=== PATIENT | male | born 1940 | race Caucasian/White ===

== ENCOUNTER 2019-05-21 10:32 | Day surgery (SDC) | payer BC, MEDICARE ==
[~2019-05-21] VITALS: Ht 160 cm; Wt 61.2 kg
[~2019-05-21 10:32] MED LIST: ASPI81TA85 PO; LISI-538 PO; NS 1,000 ML IV ONE; SIMV40TA2 PO
[2019-05-21] MEDS ORDERED: LIDOCAINE 2% INJ 100 MG/5 ML SDV (FOR ANES.) As Ordered ONE (10:56)
[2019-05-21] MEDS ORDERED: PROPOFOL 200 MG/20 ML VIAL As Ordered ONE (10:56)
--- NOTE | 2019-05-21 12:38 | ROOR ---
Patient Name: Reece Galicia Procedure Date: 05/21/2019 12:18 PM Date of : 1940 Age: 78 Room: [facility] Gender: Male Note Status: Finalized Procedure: Total Colonoscopy to Cecum + ileoscopy Indications: Screening for colorectal malignant neoplasm Providers: Tristan Kerns MD Referring MD: KATELYN BEACH JR, MD Requesting Provider: Medicines: Monitored Anesthesia Care Complications: No immediate complications. Procedure: Pre-Anesthesia Assessment: - The heart rate, respiratory rate, oxygen saturations, blood pressure, adequacy of pulmonary ventilation, and response to care were monitored throughout the procedure. The Colonoscope was introduced through the anus and advanced to the cecum, identified by appendiceal orifice and ileocecal valve. The colonoscopy was performed without difficulty. The patient tolerated the procedure well. The quality of the bowel preparation was excellent. Findings: The perianal and digital rectal examinations were normal. Non-bleeding internal hemorrhoids were found during retroflexion. The hemorrhoids were small and Grade I (internal hemorrhoids that do not prolapse). Multiple small and large-mouthed diverticula were found in the recto-sigmoid colon, sigmoid colon and descending colon. The exam was otherwise without abnormality on direct and retroflexion views. The terminal ileum appeared normal. Impression: - Non-bleeding internal hemorrhoids. - Diverticulosis in the recto-sigmoid colon, in the sigmoid colon and in the descending colon. - The examination was otherwise normal on direct and retroflexion views. - The examined portion of the ileum was normal. - No specimens collected. - The exam was otherwise normal to the cecum. Recommendation: - Patient has a contact number available for emergencies. The signs and symptoms of potential delayed complications were discussed with the patient. Return to normal activities tomorrow. Written discharge instructions were provided to the patient. - High fiber diet. - Discharge patient to home. - Continue present medications. - Repeat colonoscopy for symptoms only.. - Return to referring physician. - The findings and recommendations were discussed with the patient's family. Tristan Kerns MD Tristan Kerns MD 05/21/2019 12:38:08 PM Electronically signed by Tristan Kerns MD Number of Addenda: 0 Note Initiated On: 05/21/2019 12:18 PM Estimated Blood Loss: Estimated blood loss: none.
[2019-05-21 13:00] VITALS: BP 151/71
== END 2019-05-21 13:20 | disposition home or self-care (01) ==
LOC: M OPP 10:32
PROVIDERS: ATTEND Internal Medicine Gastroenterology
DX: Z12.11 Encounter for screening for malignant neoplasm of colon (principal); K64.0 First degree hemorrhoids; K57.30 Diverticulosis of large intestine without perforation or abscess without bleeding